=== PATIENT | female | born 1955 | race Caucasian/White ===

== ENCOUNTER 2016-11-28 13:00 | Inpatient (IN) | payer OTHER ==
[~2016-11-28] VITALS: Ht 162.6 cm; Wt 63.6 kg
--- NOTE | ~2016-11-28 | CON ---
PATIENT'S NAME: MELONIE AVALOS [facility] AGE: 61 Y [address] ROOM: [place] [address] LOCATION: [facility] ADMIT DATE: 12/05/2016 Consultation DISCHARGE DATE: FAMILY PHYSICIAN: Sherine Gaviria APRN ATTENDING PHYSICIAN: TYSHAWN MÉNDEZ DATE OF CONSULTATION: 12/05/2016 REFERRING PHYSICIAN: SERGIO MOSQUEDA MD ADDENDUM: PHYSICAL EXAMINATION: GENERAL: Smoker's facies. VITAL SIGNS: Noted. HEENT: Shows nose is clear. Eyes unremarkable. She is wearing glasses. TMs are not visualized. NECK: Unremarkable. Thyroid is not enlarged. LUNGS: Clear anteriorly. HEART: No murmur. Regular rhythm. ABDOMEN: Benign. BREASTS: Not done. PELVIC AND RECTAL: Not done. EXTREMITIES: Show left arm in a sling. She is a little bit swollen over left shoulder. NEUROLOGIC: Shows no focal signs. Cranial nerves intact. IMPRESSION: 1. End-stage degenerative joint disease, left shoulder. 2. Status post left total shoulder arthroplasty today on 12/05/2016. 3. Tobacco abuse. 4. Status post pilonidal cystectomy. 5. Allergy to sulfa. 6. Major depression, in remission. 7. Gastroesophageal reflux disease. 8. Anxiety, stable. 9. Hyperlipidemia. PLAN: Follow daily. SERGIO MOSQUEDA MD PATIENT'S NAME: MELONIE AVALOS [facility] AGE: 61 Y [address] ROOM: [place] [address] LOCATION: [facility] ADMIT DATE: 12/05/2016 Consultation DISCHARGE DATE: FAMILY PHYSICIAN: Sherine Gaviria APRN ATTENDING PHYSICIAN: TYSHAWN MÉNDEZ FOOD ADVISER/modl /[id number] d: 12/05/162 t: 12/10/16 1835, CONSULTATION REPORT
--- NOTE | ~2016-11-28 | HP ---
PATIENT'S NAME: MELONIE AVALOS [facility] AGE: 61 Y [address] ROOM: [address] [place], [place] [address] LOCATION: [facility] ADMIT DATE: 12/05/2016 History & Physical DISCHARGE DATE: FAMILY PHYSICIAN: Sherine Gaviria APRN ATTENDING PHYSICIAN: JULIO MÉNDEZ DATE OF SERVICE: CHIEF COMPLAINT: Left shoulder pain. HISTORY OF PRESENT ILLNESS: The patient is a 61-year-old white female from [place], [place] who is admitted to the care of Dr. Julio Méndez, Orthopedic Surgeon, today with a diagnosis of end-stage DJD, left shoulder. By the time, I see her at 7:20 p.m., the day of surgery, she is up on [address] resting quietly after a successful left shoulder arthroplasty, per Dr. Méndez. I have been asked to follow her for medical illness. When I see her, she is not complaining of nausea, vomiting, headache, chest pain, or shortness of breath. MEDICATIONS: Current mediations are the followin. Lipitor 80. 2. Steroid cream. 3. Flexeril 10 as needed. 4. Flonase nasal spray. 5. Claritin 10 mg daily. 6. Ativan 0.5 as needed. 7. Mobic 15 mg as needed. 8. Protonix 40 mg. 9. Zoloft 100 mg a day. ALLERGIES: SULFA. PREVIOUS OPERATIONS: Status post pilonidal cystectomy and a previous skin graft. OTHER HOSPITALIZATIONS: None. MAJOR ILLNESSES: No history of rheumatic fever or tuberculosis. No previous blood transfusion. Not allergic to latex. Does smoke a half-a-pack of cigarettes per day. PATIENT'S NAME: MELONIE AVALOS [facility] AGE: 61 Y [address] ROOM: [address] [place], [place] [address] LOCATION: [facility] ADMIT DATE: 12/05/2016 History & Physical DISCHARGE DATE: FAMILY PHYSICIAN: Sherine Gaviria APRN ATTENDING PHYSICIAN: JULIO MÉNDEZ FAMILY HISTORY: Negative for problems with bleeding disorder or general anesthesia. REVIEW OF SYSTEMS: Positive for allergic rhinitis, stable major depression in remission, left shoulder arthritis, anxiety, depression, major in remission, and GERD. PHYSICAL EXAMINATION: VITAL SIGNS: Stable. I will finish this later. MD RICHY JACKSON/eleanor /[id number] D: [id number] T: [id number] HISTORY & PHYSICAL
--- NOTE | ~2016-11-28 | OR ---
PATIENT'S NAME: MELONIE AVALOS [facility] AGE: 61 Y [address] ROOM: [place] [address] LOCATION: G3 ADMIT DATE: 12/05/2016 OR/Procedure Report DISCHARGE DATE: FAMILY PHYSICIAN: Sherine Gaviria APRN ATTENDING PHYSICIAN: JULIO MÉNDEZ SURGEON: Julio Méndez MD DIGITAL IMAGER: Aquilino Alatorre PA-C. An bacteriology research assistant was necessary during the entire case. The bacteriology research assistant helped with soft tissue retraction, positioning of the limb in space, glenoid exposure, implant placement, as well as wound closure. DATE OF PROCEDURE: 12/05/2016 PREOPERATIVE DIAGNOSIS: Left shoulder end-stage osteoarthritis. POSTOPERATIVE DIAGNOSES: 1. Left shoulder end-stage osteoarthritis. 2. Biceps long head tendinopathy. PROCEDURE: 1. Left total shoulder arthroplasty using Tornier ViewRayiciti System. 2. Biceps tenodesis. ANESTHESIA: General endotracheal anesthesia. ESTIMATED BLOOD LOSS: 200 mL. DRAINS: None. SPECIMENS: None. COMPLICATIONS: None. INDICATIONS: Melonie Avalos is a 61-year-old female. She presented to my clinic with left shoulder pain. X-rays revealed a large bone spur on the inferior aspect of the humeral head as well as cystic changes that are across the glenohumeral joint. An MRI was able to be reviewed. The MRI did show that her rotator cuff was intact, but it did have end-stage degenerative changes. We talked about continuing conservative treatment with injections, anti-inflammatories, and physical therapy. We also talked about the role of surgery. Given her age, I did not feel like she would be a good candidate for a reverse total shoulder arthroplasty. I did feel like a total shoulder arthroplasty would be a decent option for her. I did talk about the increased risk of infection given the fact that she is a smoker. Talked about the risk of bleeding, infection, damage to surrounding structures, shoulder stiffness, potential need for future surgery including manipulations, as well as risks of PATIENT'S NAME: MELONIE AVALOS [facility] AGE: 61 Y [address] ROOM: [address] [address] LOCATION: [facility] ADMIT DATE: 12/05/2016 OR/Procedure Report DISCHARGE DATE: FAMILY PHYSICIAN: Sherine Gaviria APRN ATTENDING PHYSICIAN: JULIO MÉNDEZ anesthetic including heart attack, stroke, pneumonia, and . She ultimately elected to proceed with surgery. DESCRIPTION OF PROCEDURE: Surgical marking pen was used to correctly identify the left shoulder as the surgical site. Consent was signed and dated. She was taken back to the operating suite and placed supine on the OR table. She underwent general endotracheal induction and intubation. A time-out was called by myself. During the time-out, the patient, the procedure to be performed, the dosing of the preoperative antibiotics, and the postoperative plan was reviewed by everyone in the room. The patient was positioned in a beach chair position. All bony prominences were well padded. The right upper extremity was taken through range of motion. She had 130 degrees of passive forward flexion as well as 120 degrees of abduction. She had 60 degrees of external rotation and 50 degrees of internal rotation. Crepitus was noted during the arc of motion. The left upper extremity was then prepped and draped in a standard sterile fashion. Marked out the bony anatomy of that left shoulder. I used a 10 blade scalpel to create a deltopectoral incision. I dissected down through the skin and subcutaneous tissue. Hemostasis was achieved. Cephalic vein was identified and retracted laterally with the deltoid. I freed up the clavipectoral fascia. I went ahead and identified the upper border of the pectoralis major tendon. I released the upper 1 cm. I then identified the long head of the biceps within the groove. I evaluated the biceps after I had released the sheath and found that it was quite hemorrhagic. For that reason, I performed a soft tissue tenodesis to the upper border of the tendon that I released using a [id number] #2 Orthocord stitch. The 3 sister vessels were ligated. I then performed a subscapularis peel off the lesser tuberosity, and I tagged it with two #2 Orthocord stitches. I then dislocated the humeral head. Osteophytes were present over the anterior aspect. I removed all the osteophytes with a rongeur. I then used the ViewRayiciti guide to dolores my inclination at 125 degrees. I then made a freehand cut, matching her anatomy. Prior to doing this, I had inspected the greater tuberosity and I felt like the rotator cuff including the supraspinatus insertion was intact, as was the infraspinatus. For that reason, I felt the Simpliciti System would be adequate. Once I had my humeral cut performed, I then inspected the bone quality. There was no cyst present, she had very good cancellous bone quality. I then sized her humeral cut as a size 1. I then placed the central guide pin into the far lateral cortex. I used the reamer to achieve concentric witness circles. I then put the trial, placed a nucleus into place as well as the humeral head protector. I then exposed my glenoid. I performed a 360-degree labral excision and capsular release. I then determined my radius of curvature as a small 35-degree radius of curvature. A central guidepin was placed. I then used the suction plate roller hand. There was some known cystic changes based on that MRI, and I had to work hard to achieve a concentric reaming as the cystic changes were more present over the anterior surface. There was some anterior bone PATIENT'S NAME: MELONIE AVALOS [facility] AGE: 61 Y [address] ROOM: [place] [address] LOCATION: [facility] ADMIT DATE: 12/05/2016 OR/Procedure Report DISCHARGE DATE: FAMILY PHYSICIAN: Sherine Gaviria APRN ATTENDING PHYSICIAN: JULIO MÉNDEZ. After I concentrically reamed all, I was down to good subchondral bone, and I felt comfortable with the prepared surface. I then drilled the central peg. I used the size small 35 mm guide and then drilled my 3 peripheral pegs. The trial implant was put into place. There was no rocking-horse phenomenon there. I felt comfortable with repair. Hemostasis was achieved. I thoroughly irrigated out the wound. I then impacted the final Aequalis PerFORM CortiLoc pegged glenoid, model S35 after I had bone grafted the central peg of the glenoid component and I had used a Colin syringe to place Simplex P bone cement that had been prepared into the peripheral pegs. I held the implant in position until the cement had had time to cure. I then turned my attention back to the humeral component. I placed a size 48 mm x 18 mm thick humeral head onto the trial nucleus. I took the shoulder through range of motion. She had 50% spring holloway. She had good forward flexion and external rotation. No instability was noted. At this point, I felt comfortable with that repair. For that reason, I then drilled 8 drill holes in the lesser tuberosity, and I passed #2 Orthocord stitches through those drill holes for later repair of that subscapularis. I impacted the final size 1 nucleus as well as the Simpliciti size 48 mm standard humeral head, which was 18 mm thick in the position. I then repaired the subscapularis after I taking the arm again through a range of motion and felt the same stability and soft tissue balance. I repaired the subscapularis using those #2 Orthocord stitches in that lesser tuberosity, tied over a mattress fashion. I then closed the rotator interval with 0 Vicryl. I then closed the skin with a 2-0 Vicryl followed by a running 3-0 Monocryl followed by farhana. Dressings in the form of Xeroform, 4x4s, and Tegaderm were applied. She was placed into a sling and transferred to recovery room in stable condition where she was found to be neurovascularly intact. MD NITA SMITH/eleanor /[id number] d: 12/05/162108 t: 12/12/162141, OPERATIVE SUMMARY
[~2016-11-28 13:00] MED LIST: ATIVAN 0.5MG0.5 MG PO; CLARITIN10 MG PO; FLEXERIL10 MG PO; FLONASE 50 MCG/16 GM NOSE; LIPITOR80 MG PO; MOBIC15 MG PO; NICOTINE PATCH1 EACH TOP; PROTONIX40 MG PO; TEMOVATE 0.05%45 GM TOP; ZOLOFT100 MG PO
--- NOTE | 2016-12-05 17:47 | NUR ---
Significant Event: Received from pacu @ 1420. Will have 2nd hourly vs @ 1900. Had interscalene block. Still has numbness/tingling to L) arm. sling to L) arm. Dressing c/d/i. @ bedside. Needs encouragement to use IS. Follow up:
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
--- NOTE | 2016-12-06 06:44 | NUR ---
[id number] Supevised [facility] Ssn/Ssbn Assistant Navigator.
[2016-12-06] MEDS ORDERED: TYLENOL EXTRA500 MG PO (09:25)
[2016-12-06] MEDS ORDERED: ECOTRIN325 MG PO (09:26)
[2016-12-06] MEDS ORDERED: OXYCONTIN EXTEN10 MG PO (09:29)
[2016-12-06] MEDS ORDERED: KEFLEX250 MG PO (09:31)
[2016-12-06] MEDS ORDERED: DILAUDID 2MG(HYD2 MG PO (09:32)
== END 2016-12-06 11:20 | disposition disaster alternative care site (69) | DRG 483 ==
LOC: G3N 12-05 07:30
PROVIDERS: ADMIT Orthopaedic Surgery Sports Medicine
DX: M19.012 Primary osteoarthritis, left shoulder (principal); F32.9 Major depressive disorder, single episode, unspecified; M75.82 Other shoulder lesions, left shoulder; E78.5 Hyperlipidemia, unspecified; K21.9 Gastro-esophageal reflux disease without esophagitis; F41.9 Anxiety disorder, unspecified; F17.210 Nicotine dependence, cigarettes, uncomplicated; J30.9 Allergic rhinitis, unspecified; Z88.2 Allergy status to sulfonamides; J44.9 Chronic obstructive pulmonary disease, unspecified
CPT/HCPCS: C1713; C1776; J0171; J0690; J1100; J1170; J2001; J2250; J2765; J7120